=== PATIENT | male | born 1985 | race Caucasian/White ===

== ENCOUNTER 2023-08-18 11:13 | Emergency (ER) | payer SELFPAY ==
[2023-08-18 11:20] VITALS: BP 127/89; PULSE 84; RESP 18; TEMP 97.5; BMI 30.7
== END 2023-08-18 13:20 | disposition home or self-care (01) ==
LOC: JER 11:13
DX: K62.89 Other specified diseases of anus and rectum (principal); K60.2 Anal fissure, unspecified
CPT/HCPCS: 99283-25